=== PATIENT | female | born 1995 | race Caucasian/White ===

== ENCOUNTER 2024-07-09 13:11 | Outpatient (RCR) | payer OTHER, SELFPAY ==
[2024-07-09 14:25] LABS: HCG Quantitative 20655 mIU/mL
[2024-07-11 09:51] LABS: HCG Quantitative 33030 mIU/mL
[2024-07-14 10:26] LABS: HCG Quantitative 50313 mIU/mL
== END 2024-07-14 12:01 | disposition home or self-care (01) ==
LOC: LAB 13:11
PROVIDERS: Visit Provider Obstetrics & Gynecology
DX: N92.6 Irregular menstruation, unspecified (principal)
CPT/HCPCS: 36415; 84702

== ENCOUNTER 2024-08-22 13:33 | Outpatient (RCR) | payer OTHER, SELFPAY ==
[2024-08-22 14:42] LABS: HCG Quantitative 37475 mIU/mL
== END 2024-10-14 23:59 | disposition home or self-care (01) ==
LOC: LAB 13:33
PROVIDERS: Visit Provider Obstetrics & Gynecology
DX: O03.9 Complete or unspecified spontaneous abortion without complication (principal)
CPT/HCPCS: 36415; 84702

== ENCOUNTER 2024-08-22 19:10 | Observation (INO) | payer OTHER, SELFPAY ==
[2024-08-22 19:22] VITALS: BP 153/74; PULSE 98
--- NOTE | 2024-08-22 19:31 | US_ITS ---
The [address] [address] Patient Name: VALERY CAMACHO MRN: [id number] date: 1995 Sex: F Assigned Patient Location: [facility] Current Patient Location: Accession/Order Number: [id number] Exam Date: 08/22/2024 20:20 Report Date: 08/23/2024 01:46 At the request of: SPARKLE PAULINO Procedure: US OB <= 14 weeks fetus EXAM: US OB <= 14 weeks fetus HISTORY: Dating US COMPARISON: None. TECHNIQUE: Transabdominal ultrasound of the pelvis was performed using Duplex Doppler. FINDINGS: Ultrasound images demonstrate a gravid uterus with a gestational sac with a mean sac diameter of 4.6 cm, indicative of a 10 week 2 day gestation. Within the gestational sac is a well-defined embryo with a crown rump length measuring 6.1 cm indicative of a 12 week 4 day gestation. Embryonic cardiac activity is noted at a rate of 154 beats per minute. The placenta is not yet visible due to the early gestational age. The amniotic fluid is unable to be assessed due to the early gestational age. The cervix is closed measuring up to 4.2 cm. The right ovary is not seen. The left ovary measures up to 3.5 x 2.2 x 2.6 cm. Blood flow is seen in the left ovary. No free fluid is noted within the cul-de-sac. US/US OB <= 14 weeks fetus IMPRESSION: 1. Single live intrauterine gestation at approximately 12 weeks 4 days with a heart rate of 154 bpm. Electronically authenticated by: Steve FAULKNER Date: 08/23/2024 01:46
[2024-08-22 19:38] VITALS: BP 147/73; PULSE 83
[2024-08-22 20:03] VITALS: BP 134/79; PULSE 81
[2024-08-22 20:26] LABS: Bilirubin Urine NEGATIVE (NEGATIVE); Blood Urine NEGATIVE (NEGATIVE); Clarity Urine CLEAR (CLEAR); Color Urine LT. YELLOW (YELLOW); Glucose Urine UA NEGATIVE (NEGATIVE); Ketones Urine NEGATIVE (NEGATIVE); Leukocyte Esterase Urine SMALL (NEGATIVE); Nitrite Urine NEGATIVE (NEGATIVE); Protein Urine NEGATIVE (NEG/TRACE); Urobilinogen Urine 0.2 EU/dL (0.2-1.0); pH Urine 6.5 (5.0-9.0)
[2024-08-22 20:32] LABS: Urine Microscopic Indicated YES
[2024-08-22 20:39] LABS: Bacteria Urine SMALL #/HPF (NONE SEEN); Cast Seen? NONE SEEN #/LPF (NONE SEEN); Crystals Seen? None Seen #/HPF (None Seen); Mucus Urine NONE SEEN (NONE SEEN); RBC Urine 0-2 #/HPF (0-2); Squamous Epithelial Cell Urine MANY #/LPF (NONE/RARE); Urine Culture Indicated YES
== END 2024-08-22 21:00 | disposition home or self-care (01) ==
PROVIDERS: Admitting Provider Obstetrics & Gynecology; Visit Provider Obstetrics & Gynecology
DX: O16.1 Unspecified maternal hypertension, first trimester (principal); Z3A.12 12 weeks gestation of pregnancy
CPT/HCPCS: 76801; 81001; 87086; G0378; G0379

== ENCOUNTER 2024-09-12 12:49 | Outpatient (OUT) | payer OTHER, SELFPAY ==
[2024-09-12 13:17] LABS: Basophils Percent Auto 0.2 % (0.2-2.0); Eosinophils Absolute Auto 0.1 10^3/uL (0.0-0.7); Eosinophils Percent Auto 0.7 % (0.9-7.0); Hematocrit 41.9 % (36.0-48.0); Immature Granulocytes Abs Auto 0.03 10^3/uL (0.00-0.03); Immature Granulocytes Pct Auto 0.3 % (0.0-0.5); Lymphocytes Absolute Auto 2.1 10^3/uL (1.2-3.8); Lymphocytes Percent Auto 18.2 % (20.5-60.0); Mean Corpuscular HGB Conc 33.4 g/dL (29.9-35.2); Mean Corpuscular Hemoglobin 28.9 pg (26.7-34.0); Mean Corpuscular Volume 86.6 fL (81.0-99.0); Mean Platelet Volume 10.2 fL (9.5-13.5); Monocytes Absolute Auto 0.5 10^3/uL (0.3-0.8); Monocytes Percent Auto 4.7 % (1.7-12.0); Neutrophils Absolute Auto 8.6 10^3/uL (1.4-6.5); Neutrophils Percent Auto 75.9 % (43.0-75.0); Platelet Count 300 10^3/uL (150-450); Red Blood Count 4.84 10^6/uL (4.20-5.40); White Blood Count 11.3 10^3/uL (4.0-11.0)
[2024-09-12 13:26] LABS: BOX Test Reference Lab UNITY; BOX Test Sent Out UNITY
[2024-09-12 13:50] LABS: Amphetamine Screen Urine NEGATIVE (NEGATIVE); Barbiturates Screen Urine NEGATIVE (NEGATIVE); Benzodiazepines Screen Urine NEGATIVE (NEGATIVE); Buprenorphine Screen Urine NEGATIVE (NEGATIVE); Cannabinoid Screen Urine POSITIVE (NEGATIVE); Cocaine Screen Urine NEGATIVE (NEGATIVE); Methadone Screen Urine NEGATIVE (NEGATIVE); Methamphetamines Screen Urine NEGATIVE (NEGATIVE); Opiate Screen Urine NEGATIVE (NEGATIVE); Oxycodone Screen Urine NEGATIVE (NEGATIVE); Phencyclidine Screen Urine NEGATIVE (NEGATIVE); Tricyclic Antidepressant Urine NEGATIVE (NEGATIVE)
[2024-09-12 14:06] LABS: Estimated Average Glucose 103 mg/dL; Glycohemoglobin A1C 5.2 % (4.5-6.2)
[2024-09-13 04:07] LABS: HBsAg Screen Negative (Negative); HCV Ab Non Reactive (Non Reactive)
[2024-09-13 06:08] LABS: HIV Ab/p24 Ag Screen Non Reactive (Non Reactive)
[2024-09-13 07:08] LABS: Rubella Antibodies, IgG 7.35 index (Immune >0.99)
[2024-09-13 08:08] LABS: Rapid Plasma Reagin, Quant Non Reactive titer (NonRea<1:1)
[2024-09-15 12:10] LABS: Cannabinoid Positive (.); Carboxy THC Conf, MS, UR 91 ng/mL (Cutoff=10)
== END 2024-09-12 12:50 | disposition home or self-care (01) ==
LOC: LAB 12:51
PROVIDERS: Visit Provider Obstetrics & Gynecology
DX: Z34.01 Encounter for supervision of normal first pregnancy, first trimester (principal); Z36.0 Encounter for antenatal screening for chromosomal anomalies; N92.6 Irregular menstruation, unspecified
CPT/HCPCS: 36415; 80307; 80349; 83036; 85025; 86592; 86762; 86803; 86850; 86900; 86901; 87086; 87340; 87389

== ENCOUNTER 2024-09-17 19:54 | Outpatient (REF) | payer OTHER, SELFPAY ==
[2024-09-24 18:07] LABS: Age Gdln ACOG Testing Note (.); IGP, rfx Aptima HPV ASCU Note (.)
== END 2024-09-17 19:55 | disposition home or self-care (01) ==
LOC: LAB 19:54
PROVIDERS: Visit Provider Obstetrics & Gynecology
DX: Z01.419 Encounter for gynecological examination (general) (routine) without abnormal findings (principal)
CPT/HCPCS: 88175

== ENCOUNTER 2024-12-05 10:12 | Outpatient (OUT) | payer OTHER, SELFPAY ==
[2024-12-05 11:45] LABS: Basophils Percent Auto 0.2 % (0.2-2.0); Eosinophils Absolute Auto 0.1 10^3/uL (0.0-0.7); Eosinophils Percent Auto 0.5 % (0.9-7.0); Hematocrit 37.6 % (36.0-48.0); Hemoglobin 12.1 g/dL (12.0-16.0); Immature Granulocytes Abs Auto 0.05 10^3/uL (0.00-0.03); Immature Granulocytes Pct Auto 0.4 % (0.0-0.5); Lymphocytes Absolute Auto 1.5 10^3/uL (1.2-3.8); Lymphocytes Percent Auto 12.7 % (20.5-60.0); Mean Corpuscular HGB Conc 32.2 g/dL (29.9-35.2); Mean Corpuscular Hemoglobin 28.4 pg (26.7-34.0); Mean Corpuscular Volume 88.3 fL (81.0-99.0); Mean Platelet Volume 10.2 fL (9.5-13.5); Monocytes Absolute Auto 0.5 10^3/uL (0.3-0.8); Monocytes Percent Auto 3.9 % (1.7-12.0); Neutrophils Absolute Auto 9.9 10^3/uL (1.4-6.5); Neutrophils Percent Auto 82.3 % (43.0-75.0); Platelet Count 258 10^3/uL (150-450); Red Blood Count 4.26 10^6/uL (4.20-5.40); Red Cell Distribution Width 13.9 % (11.0-15.0); White Blood Count 12.1 10^3/uL (4.0-11.0)
[2024-12-05 12:05] LABS: Glucose 1 Hour 153 mg/dL (<130)
== END 2024-12-05 10:13 | disposition home or self-care (01) ==
LOC: LAB 10:12
PROVIDERS: Visit Provider Obstetrics & Gynecology
DX: Z13.1 Encounter for screening for diabetes mellitus (principal)
CPT/HCPCS: 36415; 82950; 85025

== ENCOUNTER 2024-12-16 07:57 | Outpatient (OUT) | payer OTHER, SELFPAY ==
[2024-12-16 08:42] LABS: Glucose Fasting 83 mg/dL (<95)
[2024-12-16 10:11] LABS: Glucose 1 Hour 180 mg/dL (<180)
[2024-12-16 10:48] LABS: Glucose 2 Hour 151 mg/dL (<155)
[2024-12-16 11:26] LABS: Glucose 3 Hour 58 mg/dL (<140)
== END 2024-12-16 07:58 | disposition home or self-care (01) ==
LOC: LAB 07:57
PROVIDERS: Visit Provider Obstetrics & Gynecology
DX: R73.09 Other abnormal glucose (principal)
CPT/HCPCS: 36415; 82951; 82952

== ENCOUNTER 2025-01-14 14:00 | Outpatient (OUT) | payer OTHER, SELFPAY ==
--- NOTE | 2025-01-14 13:57 | US_ITS ---
[address] [address] Patient Name: VALERY RIVERA MRN: [id number] date: 1995 Sex: F Assigned Patient Location: US Current Patient Location: US Accession/Order Number: [id number] Exam Date: 01/14/2025 14:40 Report Date: 01/14/2025 14:41 At the request of: BASIL GORDON DO Procedure: US OB BPP w non-stress Ultrasound biophysical profile HISTORY: Elevated blood pressure There is adequate breathing movement, gross body movement, tone and amniotic fluid volume for total score of 8 out of 8. The amniotic fluid index is 13.1 cm within normal limits. The heart rate is 156 bpm. US/US OB BPP w non-stress IMPRESSION: Adequate ultrasound biophysical profile Impression dictated by: Sean Rodríguez M.D.01/14/2025 2:41 PM Dictation [facility] Electronically authenticated by: [id number] Y Date: 01/14/2025 14:41
[2025-01-14 14:22] VITALS: BP 127/67; PULSE 100
== END 2025-01-14 14:59 | disposition home or self-care (01) ==
LOC: US 14:00 → FBC 14:03
PROVIDERS: Visit Provider Obstetrics & Gynecology
DX: O26.893 Other specified pregnancy related conditions, third trimester (principal); R03.0 Elevated blood-pressure reading, without diagnosis of hypertension
CPT/HCPCS: 76818

== ENCOUNTER 2025-01-17 09:59 | Outpatient (OUT) | payer OTHER, SELFPAY ==
[2025-01-17] VITALS (7 sets, daily range): BP systolic 121–157; BP diastolic 57–90; PULSE 75–102
[2025-01-17 11:17] LABS: Basophils Percent Auto 0.2 % (0.2-2.0); Eosinophils Percent Auto 0.3 % (0.9-7.0); Hematocrit 35.8 % (36.0-48.0); Immature Granulocytes Abs Auto 0.04 10^3/uL (0.00-0.03); Immature Granulocytes Pct Auto 0.3 % (0.0-0.5); Lymphocytes Absolute Auto 1.7 10^3/uL (1.2-3.8); Lymphocytes Percent Auto 13.2 % (20.5-60.0); Mean Corpuscular HGB Conc 33.5 g/dL (29.9-35.2); Mean Corpuscular Hemoglobin 29.4 pg (26.7-34.0); Mean Corpuscular Volume 87.7 fL (81.0-99.0); Mean Platelet Volume 10.5 fL (9.5-13.5); Monocytes Absolute Auto 0.6 10^3/uL (0.3-0.8); Monocytes Percent Auto 4.6 % (1.7-12.0); Neutrophils Absolute Auto 10.2 10^3/uL (1.4-6.5); Neutrophils Percent Auto 81.4 % (43.0-75.0); Platelet Count 220 10^3/uL (150-450); Red Blood Count 4.08 10^6/uL (4.20-5.40); Red Cell Distribution Width 14.1 % (11.0-15.0); White Blood Count 12.6 10^3/uL (4.0-11.0)
[2025-01-17 11:33] LABS: Alanine Aminotransferase 21 U/L (14-59); Aspartate Amino Transferase 16 U/L (15-37); Estimated GFR (African America >60 (>=60 mL/min/1.73m^2); Estimated GFR (Non-African Ame >60 (>=60 mL/min/1.73m^2); Uric Acid 4.8 mg/dL (2.6-6.0)
[2025-01-17] MEDS: LABETALOL HCL 100 MG TABLET 200 MG PO (11:35)
[2025-01-17 11:54] LABS: Partial Thromboplastin Time 22.4 sec (22.3-36.2); Prothrombin Time 9.6 sec (9.0-11.6)
[2025-01-17 12:09] LABS: INR <0.93
[2025-01-17 12:10] LABS: Fibrinogen 549 mg/dL (200-400)
[2025-01-17 12:32] LABS: Creatinine Urine Random 33.26 mg/dL (20.00-300.00); Protein Creatinine Ratio Urine 0.18; Total Protein Urine Random <6.0 mg/dL (<=11.9)
== END 2025-01-17 13:33 | disposition home or self-care (01) ==
LOC: FBCO 09:59 → FBC 10:02
PROVIDERS: Visit Provider Obstetrics & Gynecology
DX: O10.913 Unspecified pre-existing hypertension complicating pregnancy, third trimester (principal); Z3A.33 33 weeks gestation of pregnancy
CPT/HCPCS: 36415; 59025; 82565; 82570; 84156; 84450; 84460; 84520; 84550; 85025; 85384; 85610; 85730

== ENCOUNTER 2025-01-21 13:55 | Outpatient (OUT) | payer OTHER, SELFPAY ==
--- NOTE | 2025-01-21 | US_ITS ---
[address] [address] Patient Name: VALERY RIVERA MRN: [facility]:[id number] date: 1995 Sex: F Assigned Patient Location: [facility] Current Patient Location: [facility] Accession/Order Number: [id number] Exam Date: 01/21/2025 14:31 Report Date: 01/21/2025 14:32 At the request of: BASIL GORDON DO Procedure: US OB BPP w non-stress Biophysical profile. Reason for exam: Elevated blood pressure. COMPARISON: Biophysical profile 01/14/2025. TECHNIQUE: Transabdominal imaging of the gravid uterus was obtained. FINDINGS: The it systems engineer reports the BPP is 8 out of 8. heart rate 134 bpm. AUGUSTINA is normal 11.3 cm. US/US OB BPP w non-stress Impression: BPP 8 out of 8. Impression dictated by: Jp Smith Jr., D.O.01/21/2025 2:32 PM Dictation Location: [place] [address] Electronically authenticated by: [id number] Y Date: 01/21/2025 14:32
[2025-01-21 14:22] VITALS: BP 121/58; PULSE 80
== END 2025-01-21 14:54 | disposition home or self-care (01) ==
LOC: US 13:55 → FBC 13:58
PROVIDERS: Visit Provider Obstetrics & Gynecology
DX: O16.3 Unspecified maternal hypertension, third trimester (principal)
CPT/HCPCS: 76818

== ENCOUNTER 2025-01-24 09:56 | Outpatient (OUT) | payer OTHER, SELFPAY ==
[2025-01-24 10:03] VITALS: BP 121/64; PULSE 82
== END 2025-01-24 10:38 | disposition home or self-care (01) ==
LOC: FBCO 09:56 → FBC 09:57
PROVIDERS: Visit Provider Obstetrics & Gynecology
DX: O16.3 Unspecified maternal hypertension, third trimester (principal); Z3A.34 34 weeks gestation of pregnancy
CPT/HCPCS: 59025

== ENCOUNTER 2025-01-28 13:57 | Outpatient (OUT) | payer OTHER, SELFPAY ==
--- NOTE | 2025-01-28 | US_ITS ---
The [address] [address] Patient Name: VALERY RIVERA MRN: [id number] date: 1995 Sex: F Assigned Patient Location: US Current Patient Location: US Accession/Order Number: [id number] Exam Date: 01/28/2025 15:18 Report Date: 01/28/2025 15:18 At the request of: BASIL GORDON DO Procedure: US OB BPP w non-stress Biophysical profile. Reason for exam: Elevated blood pressure. COMPARISON: Biophysical profile 01/21/2025 TECHNIQUE: Transabdominal imaging of the gravid uterus was obtained. FINDINGS: The sword swallower reports the BPP is 8 out of 8. heart rate 148 bpm. AUGUSTINA is normal 13.5 cm. US/US OB BPP w non-stress Impression: BPP 8 out of 8. Impression dictated by: Jp Smith Jr., D.O.01/28/2025 3:18 PM Dictation Location: [place] [address] Electronically authenticated by: [id number] Y Date: 01/28/2025 15:18
[2025-01-28 14:33] VITALS: BP 123/57; PULSE 80
== END 2025-01-28 15:00 | disposition home or self-care (01) ==
LOC: US 13:58 → FBC 14:00
PROVIDERS: Visit Provider Obstetrics & Gynecology
DX: O10.913 Unspecified pre-existing hypertension complicating pregnancy, third trimester (principal)
CPT/HCPCS: 76818

== ENCOUNTER 2025-01-31 09:58 | Outpatient (OUT) | payer OTHER, SELFPAY ==
[2025-01-31 10:07] VITALS: TEMP 36.1
[2025-01-31 10:08] VITALS: BP 99/71; PULSE 96
--- NOTE | 2025-01-31 11:22 | US_ITS ---
[address] [address] Patient Name: VALERY RIVERA MRN: [id number] date: 1995 Sex: F Assigned Patient Location: [facility] Current Patient Location: Accession/Order Number: [id number] Exam Date: 02/02/2025 09:55 Report Date: 02/02/2025 09:57 At the request of: BASIL GORDON DO Procedure: US OB BPP w non-stress Ultrasound biophysical profile HISTORY: Hypertension There is adequate breathing movement, gross body movement, tone and amniotic fluid volume. Total score 8 out of 8. Amniotic fluid index 12.4 cm within normal limits. heart rate 142 bpm. US/US OB BPP w non-stress IMPRESSION: Adequate ultrasound biophysical profile. Impression dictated by: Sean Rodríguez M.D.02/02/2025 9:57 AM Dictation Location: [place] [address] Electronically authenticated by: [id number] Y Date: 02/02/2025 09:57
== END 2025-01-31 11:50 | disposition home or self-care (01) ==
LOC: FBCO 09:59 → FBC 10:00
PROVIDERS: Visit Provider Obstetrics & Gynecology
DX: O16.3 Unspecified maternal hypertension, third trimester (principal); Z3A.35 35 weeks gestation of pregnancy
CPT/HCPCS: 59025; 76818

== ENCOUNTER 2025-02-03 12:21 | Outpatient (REF) | payer OTHER, SELFPAY | END 2025-02-03 12:22 | disposition home or self-care (01) | LOC: LAB 12:21 | PROVIDERS: Visit Provider Obstetrics & Gynecology | DX: Z34.93 Encounter for supervision of normal pregnancy, unspecified, third trimester (principal); Z3A.36 36 weeks gestation of pregnancy | CPT/HCPCS: 36415; 87081 ==

== ENCOUNTER 2025-02-04 13:58 | Outpatient (OUT) | payer OTHER, SELFPAY ==
--- NOTE | 2025-02-04 13:58 | US_ITS ---
[address] [address] Patient Name: VALERY RIVERA MRN: [id number] date: 1995 Sex: F Assigned Patient Location: US Current Patient Location: US Accession/Order Number: [id number] Exam Date: 02/04/2025 15:04 Report Date: 02/04/2025 15:06 At the request of: BASIL GORDON DO Procedure: US OB BPP w non-stress Ultrasound obstetrical biophysical profile HISTORY: Elevated blood pressure There is adequate breathing movement, gross body movement, tone and amniotic fluid volume for total score of 8 out of 8. Amniotic fluid index is 12.1 cm within normal limits. heart rate is 135 bpm. US/US OB BPP w non-stress IMPRESSION: Adequate biophysical profile. Impression dictated by: Sean Rodríguez M.D.02/04/2025 3:06 PM Dictation Location: [place] [address] Electronically authenticated by: [id number] Y Date: 02/04/2025 15:06
[2025-02-04 14:14] VITALS: BP 123/61; PULSE 83
== END 2025-02-04 15:15 | disposition home or self-care (01) ==
LOC: US 13:58 → FBC 13:59
PROVIDERS: Visit Provider Obstetrics & Gynecology
DX: O26.893 Other specified pregnancy related conditions, third trimester (principal)
CPT/HCPCS: 76818

== ENCOUNTER 2025-02-07 09:56 | Outpatient (OUT) | payer OTHER, SELFPAY ==
[2025-02-07 10:02] VITALS: TEMP 36.3
[2025-02-07 10:03] VITALS: BP 126/68; PULSE 76
== END 2025-02-07 10:37 | disposition home or self-care (01) ==
LOC: FBCO 09:57 → FBC 09:59
PROVIDERS: Visit Provider Obstetrics & Gynecology
DX: O16.3 Unspecified maternal hypertension, third trimester (principal); Z3A.36 36 weeks gestation of pregnancy
CPT/HCPCS: 59025

== ENCOUNTER 2025-02-08 20:31 | Observation (INO) | payer OTHER, SELFPAY ==
[2025-02-08 20:53] VITALS: BP 138/93; PULSE 85
[2025-02-08 21:08] LABS: Bilirubin Urine NEGATIVE (NEGATIVE); Blood Urine NEGATIVE (NEGATIVE); Clarity Urine CLEAR (CLEAR); Color Urine LT. YELLOW (YELLOW); Glucose Urine UA NEGATIVE (NEGATIVE); Ketones Urine NEGATIVE (NEGATIVE); Leukocyte Esterase Urine MODERATE (NEGATIVE); Nitrite Urine NEGATIVE (NEGATIVE); Protein Urine NEGATIVE (NEG/TRACE); Urine Microscopic Indicated YES; Urobilinogen Urine 0.2 EU/dL (0.2-1.0)
[2025-02-08 21:19] LABS: Amorphous Sediment Urine FEW; Bacteria Urine MODERATE #/HPF (NONE SEEN); Cast Seen? NONE SEEN #/LPF (NONE SEEN); Crystals Seen? Seen #/HPF (None Seen); Mucus Urine NONE SEEN (NONE SEEN); RBC Urine NONE SEEN #/HPF (0-2); Squamous Epithelial Cell Urine MODERATE #/LPF (NONE/RARE); Transitional Epi Cells Urine RARE #/LPF (NONE SEEN); Urine Culture Indicated YES-LC
[2025-02-08 21:34] VITALS: BP 151/72; PULSE 75
[2025-02-08 21:49] VITALS: BP 126/66; PULSE 81
[2025-02-08 22:04] VITALS: BP 139/74; PULSE 75
[2025-02-08 22:19] VITALS: BP 134/72; PULSE 73
== END 2025-02-08 22:28 | disposition home or self-care (01) ==
LOC: FBC 20:32
PROVIDERS: Admitting Provider Obstetrics & Gynecology; Visit Provider Obstetrics & Gynecology
DX: O36.8130 Decreased fetal movements, third trimester, not applicable or unspecified (principal); Z3A.36 36 weeks gestation of pregnancy
CPT/HCPCS: 59025; 81001; 87086; G0378; G0379

== ENCOUNTER 2025-02-11 14:02 | Outpatient (OUT) | payer OTHER, SELFPAY ==
--- NOTE | 2025-02-11 | US_ITS ---
[address] [address] Patient Name: VALERY RIVERA MRN: [id number] date: 1995 Sex: F Assigned Patient Location: [facility] Current Patient Location: Accession/Order Number: [id number] Exam Date: 02/11/2025 15:43 Report Date: 02/11/2025 15:44 At the request of: BASIL GORDON DO Procedure: US OB BPP w non-stress Biophysical profile. Reason for exam: Elevated blood pressure. COMPARISON: Biophysical profile 02/04/2025 TECHNIQUE: Transabdominal imaging of the gravid uterus was obtained. FINDINGS: The photographic equipment technician reports the BPP is 8 out of 8. heart rate 135 bpm. AUGUSTINA is normal 15.29 cm. US/US OB BPP w non-stress Impression: BPP 8 out of 8. Impression dictated by: Jp Smith Jr., D.O. 02/11/2025 3:44 PM Dictation Location: [place] [address] Electronically authenticated by: [id number] Y Date: 02/11/2025 15:44
[2025-02-11 14:48] VITALS: BP 128/60; PULSE 82
== END 2025-02-11 15:40 | disposition home or self-care (01) ==
LOC: US 14:03 → FBC 14:03
PROVIDERS: Visit Provider Obstetrics & Gynecology
DX: O26.893 Other specified pregnancy related conditions, third trimester (principal); R03.0 Elevated blood-pressure reading, without diagnosis of hypertension
CPT/HCPCS: 76818

== ENCOUNTER 2025-02-14 10:00 | Outpatient (OUT) | payer OTHER, SELFPAY ==
[2025-02-14 10:16] VITALS: BP 143/68; PULSE 83; TEMP 36.3
== END 2025-02-14 11:05 | disposition home or self-care (01) ==
LOC: FBCO 10:00 → FBC 10:02
PROVIDERS: Visit Provider Obstetrics & Gynecology
DX: O16.3 Unspecified maternal hypertension, third trimester (principal)

== ENCOUNTER 2025-02-15 18:25 | Inpatient (IN) | payer OTHER, SELFPAY ==
[2025-02-15] VITALS (9 sets, daily range): BP systolic 127–144; BP diastolic 68–81; PULSE 62–83; TEMP 35.9
[2025-02-15] MEDS: MISOPROSTOL 100 MCG TABLET 25 MCG VAGINAL ×2 (20:12→23:11)
[2025-02-15 20:20] LABS: Hematocrit 34.2 % (36.0-48.0); Hemoglobin 11.5 g/dL (12.0-16.0); Mean Corpuscular HGB Conc 33.6 g/dL (29.9-35.2); Mean Corpuscular Hemoglobin 29.6 pg (26.7-34.0); Mean Corpuscular Volume 87.9 fL (81.0-99.0); Platelet Count 220 10^3/uL (150-450); Red Blood Count 3.89 10^6/uL (4.20-5.40); Red Cell Distribution Width 14.6 % (11.0-15.0); White Blood Count 11.9 10^3/uL (4.0-11.0)
[2025-02-15 20:32] LABS: Amphetamine Screen Urine NEGATIVE (NEGATIVE); Barbiturates Screen Urine NEGATIVE (NEGATIVE); Benzodiazepines Screen Urine NEGATIVE (NEGATIVE); Buprenorphine Screen Urine NEGATIVE (NEGATIVE); Cannabinoid Screen Urine NEGATIVE (NEGATIVE); Cocaine Screen Urine NEGATIVE (NEGATIVE); Methadone Screen Urine NEGATIVE (NEGATIVE); Methamphetamines Screen Urine NEGATIVE (NEGATIVE); Opiate Screen Urine NEGATIVE (NEGATIVE); Oxycodone Screen Urine NEGATIVE (NEGATIVE); Phencyclidine Screen Urine NEGATIVE (NEGATIVE); Tricyclic Antidepressant Urine NEGATIVE (NEGATIVE)
[2025-02-15] MEDS: LABETALOL HCL 100 MG TABLET 200 MG PO (21:27)
[2025-02-16] VITALS (35 sets, daily range): BP systolic 100–141; BP diastolic 49–96; PULSE 55–88; TEMP 36.4–36.8
[2025-02-16] MEDS: MISOPROSTOL 100 MCG TABLET 25 MCG VAGINAL (02:14)
[2025-02-16] MEDS: ONDANSETRON PF 4 MG/2 ML VIAL IV (05:37)
[2025-02-16] MEDS: NALBUPHINE HCL 10 MG/ML AMPULE IV (05:40)
[2025-02-16] MEDS: 0.9 % SODIUM CHLORIDE 1,000 ML 1000 ML IV (06:40)
[2025-02-16] MEDS: ROPIVACAINE HCL/PF 400 MG/200 ML PREMIX 6 MG EPIDURAL (06:59)
[2025-02-16] MEDS: 0.9 % SODIUM CHLORIDE 1,000 ML 125 ML IV (08:00)
[2025-02-16] MEDS: OXYTOCIN/0.9 % SODIUM CHLORIDE 20 UNITS/1,000 ML PLAST..BAG 999 UNIT IV (09:00)
--- NOTE | 2025-02-16 09:21 | PM.OBPRCVD ---
Procedure Intrapartal events: None Induction method: per misoprostol protocol Delivery monitor: external FHT and external uterine Route of delivery: Episiotomy Description: none L&D Laceration Description: perineal - 4th degree Delivery repair: Vicryl and Chromic Estimated blood loss (mL): 350 Anesthesia type: Epidural Disposition: floor Infant Delivery date: 02/16/25 Gender: male presentation: vertex Placental delivery description: Spontaneous cord description: 3 Vessels
[2025-02-16] MEDS: LIDOCAINE HCL 2% PF 100 MG/5 ML VIAL INJ (09:45)
[2025-02-16] MEDS: BENZOCAINE/MENTHOL 85 GRAM SPRAY BOTTLE 1 APPLIC TOPICAL (11:02)
[2025-02-16] MEDS: GLYCERIN/WITCH HAZEL PADS 1 PAD TOPICAL (11:03)
[2025-02-16] MEDS: IBUPROFEN 600 MG TABLET PO ×3 (11:03→23:59)
[2025-02-16] MEDS: FAMOTIDINE 20 MG TABLET PO (11:03)
[2025-02-16] MEDS: LABETALOL HCL 100 MG TABLET 200 MG PO ×2 (11:03→20:56)
[2025-02-16] MEDS: LAMOTRIGINE 25 MG TABLET 50 MG PO (11:03)
--- NOTE | 2025-02-16 17:20 | PC.NURSE ---
Agree with student assessment- Rosa Maria WALSHN, RN - [facility]
[2025-02-16] MEDS: OXYCODONE HCL/ACETAMINOPHEN 5MG/325MG 1 TAB PO ×2 (17:47→23:59)
[2025-02-17] MEDS: IBUPROFEN 600 MG TABLET PO ×3 (05:53→18:00)
[2025-02-17 06:52] LABS: Basophils Percent Auto 0.1 % (0.2-2.0); Eosinophils Absolute Auto 0.1 10^3/uL (0.0-0.7); Eosinophils Percent Auto 0.4 % (0.9-7.0); Hematocrit 28.3 % (36.0-48.0); Hemoglobin 9.4 g/dL (12.0-16.0); Immature Granulocytes Abs Auto 0.07 10^3/uL (0.00-0.03); Immature Granulocytes Pct Auto 0.4 % (0.0-0.5); Lymphocytes Absolute Auto 2.5 10^3/uL (1.2-3.8); Lymphocytes Percent Auto 15.8 % (20.5-60.0); Mean Corpuscular HGB Conc 33.2 g/dL (29.9-35.2); Mean Corpuscular Hemoglobin 29.2 pg (26.7-34.0); Mean Corpuscular Volume 87.9 fL (81.0-99.0); Mean Platelet Volume 10.5 fL (9.5-13.5); Monocytes Absolute Auto 0.8 10^3/uL (0.3-0.8); Neutrophils Absolute Auto 12.5 10^3/uL (1.4-6.5); Neutrophils Percent Auto 78.3 % (43.0-75.0); Platelet Count 185 10^3/uL (150-450); Red Blood Count 3.22 10^6/uL (4.20-5.40); Red Cell Distribution Width 14.6 % (11.0-15.0); White Blood Count 15.9 10^3/uL (4.0-11.0)
[2025-02-17 07:50] VITALS: TEMP 36.2
--- NOTE | 2025-02-17 07:51 | PM.ONB ---
Brief Operative Note Date of procedure: 02/17/25 Pre-op diagnosis general: 4th degree perineal laceration Post-op diagnosis: same as pre-op Procedure: NAME OF PROCEDURE: [ repair of 4th degree laceration ] PROCEDURE:? The patient was taken back to the OR where she was given spinal anesthesia without difficulty.? She was then placed in the dorsal lithotomy position.? Identification of a fourth degree perineal laceration was then noted.? The rectal mucosa was involved, a suture was placed 1 cm above the apex of the laceration and extended through the submucosa.? The mucosa was closed in a running fashion.? Next the anal sphincter was identified , the two edges were grasped with Allis clamps, these were then brought back together in the midline.? When repairing the sphincter, the suture was placed through the fascial sheath and this was done in a [id number] fashion.? This was performed using 3-0 Vicryl.? Next the underlying rectal fascia layer was closed.? This was done with 3-0 Vicryl.? This was done to close space between the vaginal mucosa and rectum.? At this point the procedure reached the level of repair and the need for a midline episiotomy with extension and a secondary laceration repair.? A suture was placed approximately 1 cm above the apex of the vagina.? The repair was made in a running locking fashion to the hymenal ring. .? This was done with 3-0 Vicryl.? At the hymen, careful approximation of the two edges was performed.? At this point, the suture was then carried down to the perineal body in order to close any deep defect and space.? At this point suture was then tied.? Two sutures in an interrupted fashion were placed on both sites to repair any further defects.? After this was approximated, the skin was then closed using 3-0 Vicryl in an interrupted fashion.? The patient had excellent hemostasis.? This repair was performed without difficulty.? The patient was then taken out of the dorsal lithotomy position and placed in the supine position and taken to recovery.? Sponge, lap and needle counts were correct x2.? The patient tolerated this procedure well. Anesthesia: epidural Surgeon: Paulie Wallis Estimated blood loss (mL): 50 Pathology: none sent Condition: stable Disposition: floor Urinary Catheter Management Urinary Catheter Management Straight: Cath placed during this visit: no
[2025-02-17 07:54] VITALS: BP 134/63; PULSE 75
[2025-02-17] MEDS: FAMOTIDINE 20 MG TABLET PO (08:05)
[2025-02-17] MEDS: LABETALOL HCL 100 MG TABLET 200 MG PO ×2 (08:05→21:10)
[2025-02-17] MEDS: DOCUSATE SODIUM 100 MG CAPSULE PO ×2 (08:05→21:10)
--- NOTE | 2025-02-17 08:42 | P.OBPN_ITS ---
OB - PN: Subj Subjective Patient comments: no complaints [place] status: doing well feeding status: exclusively Exam Constitutional Vital Signs, click to edit/add: Last Vital Signs Temp 97.1 F L 02/17/25 07:50 Pulse 75 02/17/25 07:54 Resp 14 02/17/25 07:50 BP 134/63 02/17/25 07:54 O2 Del Method Room Air 02/17/25 07:50 Documenting provider has reviewed patient's vital signs: yes Common normals: no apparent distress General appearance: cooperative HENMT Common normals: normocephalic Head and scalp: normal to inspection Face and sinus: normal facial exam Eye Common normals: EOMs intact bilaterally General eye: normal appearance of both eyes Neck & C-Spine Common normals: full ROM Lymph Lymphatic: no lymphadenopathy noted Respiratory Common normals: normal respiratory effort Effort & inspection: able to speak in complete sentences Auscultation: clear to auscultation bilaterally Cardio Common normals: regular rate and regular rhythm Rate: regular rate Rhythm: regular rhythm GI Common normals: Normal to inspection, nondistended, normoactive bowel sounds present, soft to palpation and non-tender Inspection: normal to inspection Auscultation: normoactive bowel sounds Palpation: soft Common normals: no CVA tenderness Back & Pelvis Common normals: no CVA tenderness Lumbar spine/lower back: normal to inspection Extremity Common normals: normal to inspection Neuro Common normals: oriented x3 Sensorium/orientation: awake, alert, oriented to person, oriented to place and oriented to time Psych Common normals: mental status grossly normal, thought process normal, cooperative, affect normal, speech normal, activity/motor behavior normal, denies hallucinations, denies homicidal ideation and denies suicidal ideation Appearance: grossly normal Attitude: calm Activity/motor behavior: appropriate eye contact Thought process: normal thought process Thought content: normal thought content Results Labs Labs: Short CBC 02/17/25 Range/Units 06:30 WBC 15.9 H (4.0-11.0) 10^3/uL Hgb 9.4 L (12.0-16.0) g/dL Hct 28.3 L (36.0-48.0) % Plt Count 185 (150-450) 10^3/uL Urinary Catheter Management Urinary Catheter Management Straight: Cath placed during this visit: no OB - PN: A/P Plan - Vaginal Delivery day: 1 Plan: routine care Time Spent with Patient Time: Total time spent is greater than 50% in coordination of care (as documented) at patient's floor/unit and/or counseling patient: Total time spent with greater than 50% in coordination of care (as documented) at patient's floor/unit and/or counseling patient: less than 15 minutes
[2025-02-17] MEDS: LAMOTRIGINE 25 MG TABLET 50 MG PO (09:55)
[2025-02-17] MEDS: OXYCODONE HCL/ACETAMINOPHEN 5MG/325MG 1 TAB PO ×2 (12:04→18:00)
--- NOTE | 2025-02-17 12:56 | PC.NURSE ---
IBCLC into room and talks with pt. Verifies that she prefers to pump and feed as it feels less stressful than putting baby to the breast. Pt has anxiety and depression being treated and this plan works for the pt. Discussed pumping and given sample of exclusive pumping around the clock. Discussed ways to decrease workload of pumping and asking for assistance from partner. Also discussed and demo of slow paced bottle feeding for with explanation. Parents receptive to information and have no further questions at this time.
[2025-02-17 16:45] VITALS: TEMP 36.2
[2025-02-17 16:46] VITALS: BP 123/61; PULSE 82
[2025-02-17 23:31] VITALS: BP 121/56; PULSE 74; TEMP 36.6
[2025-02-18] MEDS: OXYCODONE HCL/ACETAMINOPHEN 5MG/325MG 1 TAB PO (02:02)
[2025-02-18] MEDS: IBUPROFEN 600 MG TABLET PO ×2 (02:02→09:00)
--- NOTE | 2025-02-18 07:37 | P.OBPN_ITS ---
OB - PN: Subj Subjective Patient comments: no complaints and pain well controlled [place] status: doing well Exam Constitutional Vital Signs, click to edit/add: Last Vital Signs Temp 97.8 F 02/17/25 23:31 Pulse 74 02/17/25 23:31 Resp 16 02/17/25 16:45 BP 121/56 02/17/25 23:31 O2 Del Method Room Air 02/17/25 23:30 Documenting provider has reviewed patient's vital signs: yes Common normals: no apparent distress Respiratory Common normals: normal respiratory effort and clear to auscultation bilaterally Cardio Common normals: regular rate and regular rhythm GI Common normals: Normal to inspection, nondistended, normoactive bowel sounds present Extremity Common normals: no clubbing, cyanosis or edema and no calf tenderness Urinary Catheter Management Urinary Catheter Management Straight: Cath placed during this visit: no OB - PN: A/P Plan - Vaginal Delivery day: 2 Plan: routine care, discharge home and follow up 6 weeks Time Spent with Patient Time: Total time spent is greater than 50% in coordination of care (as documented) at patient's floor/unit and/or counseling patient: Total time spent with greater than 50% in coordination of care (as documented) at patient's floor/unit and/or counseling patient: less than 15 minutes
[2025-02-18 08:15] VITALS: TEMP 36.8
[2025-02-18] MEDS: LABETALOL HCL 100 MG TABLET 200 MG PO (08:57)
[2025-02-18] MEDS: DOCUSATE SODIUM 100 MG CAPSULE PO (08:57)
[2025-02-18] MEDS: FAMOTIDINE 20 MG TABLET PO (08:58)
[2025-02-18] MEDS: LAMOTRIGINE 25 MG TABLET 50 MG PO (09:00)
[2025-02-18 09:52] VITALS: BP 126/59; PULSE 85
[2025-02-18] MEDS: GLYCERIN/WITCH HAZEL PADS 1 PAD TOPICAL (10:16)
[2025-02-18] MEDS: BENZOCAINE/MENTHOL 85 GRAM SPRAY BOTTLE 1 APPLIC TOPICAL (10:17)
== END 2025-02-18 14:14 | disposition home or self-care (01) | DRG 768 ==
PROVIDERS: Admitting Provider Obstetrics & Gynecology; Visit Provider Obstetrics & Gynecology
PROC: 10E0XZZ Delivery of Products of Conception, External Approach (ICD-10-PCS; principal; 2025-02-16 09:30)
DX: O16.4 Unspecified maternal hypertension, complicating childbirth (principal); Z37.0 Single live birth; O99.214 Obesity complicating childbirth; E66.01 Morbid (severe) obesity due to excess calories; O70.3 Fourth degree perineal laceration during delivery; O99.344 Other mental disorders complicating childbirth; F31.9 Bipolar disorder, unspecified; Z3A.38 38 weeks gestation of pregnancy; Z23 Encounter for immunization; Z79.899 Other long term (current) drug therapy
CPT/HCPCS: 36415; 59050; 59410; 80307; 85025; 85027; 86850; 86900; 86901; J2300; J2405; J2795